=== PATIENT | male | born 1950 | race Caucasian/White ===

== ENCOUNTER 2024-08-27 08:57 | Emergency (ER) | payer MEDICARE ==
[~2024-08-27] VITALS: Ht 177.8 cm; Wt 104.3 kg
[2024-08-27 09:06] VITALS: PULSE 90; RESP 18; TEMP 98.2; O2SAT 99
[2024-08-27] MEDS ORDERED: PYRIDIUM100 MG PO (09:36)
[2024-08-27] MEDS ORDERED: CEFDINIR300 MG PO (09:36)
[2024-08-27 10:04] LABS: CLARITY,URINE TURBID (CLEAR); COLOR,URINE YELLOW (YELLOW); GLUCOSE, URINE NEGATIVE (NEGATIVE); LEUKOCYTE ESTERASE ,URINE SMALL (NEGATIVE); NITRITE,URINE NEGATIVE (NEGATIVE); PH,URINE 7.5 (5 - 7); PROTEIN,URINE DIPSTICK TRACE (NEGATIVE)
[2024-08-27 10:05] LABS: BILIRUBIN,URINE NEGATIVE (NEGATIVE); KETONES,URINE NEGATIVE (NEGATIVE); URINE UROBILINOGEN 1 mg/dL (0.2 - 1)
[2024-08-27 10:08] LABS: BACTERIA,URINE MANY /HPF; RBC,URINE >50 /HPF (0-5); WBC,URINE (MAN) >50 /HPF (0-5)
[2024-08-27 10:09] LABS: EPITHELIAL CELLS,URINE FEW /LPF
== END 2024-08-27 09:53 | disposition home or self-care (01) ==
LOC: ER 09:01
DX: R30.0 Dysuria (principal); N39.0 Urinary tract infection, site not specified; I10 Essential (primary) hypertension; E03.9 Hypothyroidism, unspecified; M54.9 Dorsalgia, unspecified; G89.29 Other chronic pain
CPT/HCPCS: 81001; 87086; 87186; 99283